=== PATIENT | male | born 1960 | race Caucasian/White ===

== ENCOUNTER 2020-03-20 08:18 | Inpatient (IN) | payer BC ==
--- NOTE | 2020-03-20 09:00 | EDM.PDOC ---
ED HPI GENERAL MEDICAL PROBLEM - General Chief Complaint: Genitourinary Problem Stated Complaint: SWOLLEN TESTICALS Time Seen by Provider: 03/20/20 08:49 Source of Information: Reports: Patient, RN, RN Notes Reviewed History Limitations: Reports: No Limitations - History of Present Illness INITIAL COMMENTS - FREE TEXT/NARRATIVE: Patient presents to the ED via personal vehicle with a complaint of swelling to his testicles. Upon intake of his vital signs, it was noted his oxygen saturations were 78%; he improved to 99% with 10L via mask. He states he has felt and increasing shortness of breath over the past few days. He denies headache, sore throat, cough, chest pain, palpitations, dysuria, or hematuria. He does attest to progressive swelling to his bilateral lower extremities that began this past spring. He states he is not currently taking any medications for hypertension or heart failure and does not follow with a provider for these problems. He states he smokes about one and one half packs of cigarettes per day. He attest to occasional alcohol use, stating he drinks about 3-4 times per year. He denies recreational drug use. ED ROS GENERAL - Review of Systems Review Of Systems: Comprehensive ROS is negative, except as noted in HPI. ED EXAM, GENERAL - Physical Exam Exam: See Below Exam Limited By: No Limitations General Appearance: Alert, WD/WN, Moderate Distress Eye Exam: Bilateral Eye: EOMI, Normal Inspection, PERRL Throat/Mouth: Normal Inspection, Normal Voice, No Airway Compromise Neck: Normal Inspection, Supple, Non-Tender, Full Range of Motion Respiratory/Chest: Respiratory Distress, Rales, Wheezing (Expiratory to bilateral upper lobes), Accessory Muscle Use Cardiovascular: Normal Peripheral Pulses, No Murmur, Tachycardia Peripheral Pulses: 2+: Radial (L), Radial (R) GI/Abdominal: Distended, Abnormal Bowel Sounds (Hypoactive), Hernia (Hx of umbilical hernia repair) (Male) Exam: Rash (Yeast to bilateral groin folds), Scrotal Swelling (+4 scrotal swelling) Rectal (Males) Exam: Deferred Back Exam: Normal Inspection, Full Range of Motion. No: CVA Tenderness (L), CVA Tenderness (R) Extremities: Pedal Edema (+4 pitting to bilateral lowers; Taut shiny skin), Redness (To bilateral lower extremities) Neurological: Alert, Oriented, CN II-XII Intact, Normal Cognition, No Motor/Sensory Deficits Skin Exam: Dry, Intact, Erythema (To bilateral lower extremities and lower abdomen). No: Ecchymosis, Mottled, Pallor #1 Interpretation EKG Date: 03/20/20 Time: 08:58 Rhythm: Other (Sinus Tach) Rate (Beats/Min): 104 [place]: Normal P-Wave: Present QRS: Normal ST-T: Normal QT: Normal Comparison: NA - No Prior EKG EKG Interpretation Comments: Sinus Tach; T wave inversion I, III, aVL, and V1 Course - Vital Signs Last Recorded V/S: Last Vital Signs Temp 99.9 F 03/20/20 08:23 Pulse 99 03/20/20 09:20 Resp 24 H 03/20/20 08:23 BP 144/100 H 03/20/20 08:23 Pulse Ox 72 L 03/20/20 08:23 - Orders/Labs/Meds Orders: Active Orders 24 hr Category Date Time Status Admission Diagnosis [ADT] Stat ADT 03/20/20 11:10 Ordered Admission Status [Patient Status] [ADT] Routine ADT 03/20/20 11:10 Ordered Cardiac Monitoring [RC] . DIRECTED Care 03/20/20 11:10 Ordered EKG Documentation Completion [RC] STAT Care 03/20/20 08:42 Active RT Aerosol Therapy [RC] ASDIRECTED Care 03/20/20 09:11 Active Labs: Laboratory Tests 03/20/20 03/20/20 03/20/20 Range/Units 08:47 08:47 08:47 WBC 7.9 (5.0-10.0) 10^3/uL RBC 5.64 (4.6-6.2) 10^6/uL Hgb 18.9 H (14.0-18.0) g/dL Hct 55.9 H (40.0-54.0) % MCV 99.1 (80-100) fL MCH 33.5 (27.0-34.0) pg MCHC 33.8 (33.0-35.0) g/dL Plt Count 179 (150-450) 10^3/uL Neut % (Auto) 79.1 H (42.2-75.2) % Lymph % (Auto) 7.1 L (20.5-50.1) % [place] % (Auto) 13.4 H (2-8) % Eos % (Auto) 0.1 L (1.0-3.0) % Baso % (Auto) 0.3 (0.0-1.0) % PT (9.0-12.0) SEC INR (0.9-1.2) APTT (22.0-34.0) SEC Sodium 138 (136-145) mmol/L Potassium 5.1 (3.5-5.1) mmol/L Chloride 99 (98-107) mmol/L Carbon Dioxide 36 H (21-32) mmol/L Anion Gap 8.1 (7-13) mEq/L BUN 21 H (7-18) mg/dL Creatinine 1.17 (0.70-1.30) mg/dL Est Cr Clr Drug Dosing 80.01 mL/min Estimated GFR (MDRD) > 60 BUN/Creatinine Ratio 17.9 (No establ ref range) Glucose 158 H (74-99) mg/dL Lactic Acid 1.6 (0.4-2.0) mmol/L Calcium 8.9 (8.5-10.1) mg/dL Phosphorus 4.8 H (2.6-4.7) mg/dL Magnesium 2.1 (1.8-2.4) mg/dL Total Bilirubin 1.4 H (0.2-1.0) mg/dL AST 23 (15-37) U/L ALT 29 (16-63) U/L Alkaline Phosphatase 90 (46-116) U/L Troponin I 0.019 (0.000-0.056) ng/mL C-Reactive Protein 0.2 (0.0-0.9) mg/dL B-Natriuretic Peptide 310 H (0-100) pg/ml Total Protein 5.8 L (6.4-8.2) g/dL Albumin 3.2 L (3.4-5.0) g/dL Globulin 2.6 Albumin/Globulin Ratio 1.23 Urine Color (YELLOW) Urine Appearance (CLEAR) Urine pH (5.0-9.0) Ur Specific [place] (1.005-1.030) Urine Protein (NEGATIVE) Urine Glucose (UA) (NEGATIVE) Urine Ketones (NEGATIVE) Urine Occult Blood (NEGATIVE) Urine Nitrite (NEGATIVE) Urine Bilirubin (NEGATIVE) Urine Urobilinogen (0.2-1.0) mg/dL Ur Leukocyte Esterase (NEGATIVE) Urine RBC /HPF Urine WBC (0-5/HPF) /HPF Ur Epithelial Cells (NOT SEEN) /HPF Urine Bacteria (0-FEW/HPF) /HPF Ethyl Alcohol (0) mg/dL 03/20/20 03/20/20 03/20/20 Range/Units 08:47 08:47 10:08 WBC (5.0-10.0) 10^3/uL RBC (4.6-6.2) 10^6/uL Hgb (14.0-18.0) g/dL Hct (40.0-54.0) % MCV (80-100) fL MCH (27.0-34.0) pg MCHC (33.0-35.0) g/dL Plt Count (150-450) 10^3/uL Neut % (Auto) (42.2-75.2) % Lymph % (Auto) (20.5-50.1) % [place] % (Auto) (2-8) % Eos % (Auto) (1.0-3.0) % Baso % (Auto) (0.0-1.0) % PT 15.0 H (9.0-12.0) SEC INR 1.6 H (0.9-1.2) APTT 25.5 (22.0-34.0) SEC Sodium (136-145) mmol/L Potassium (3.5-5.1) mmol/L Chloride (98-107) mmol/L Carbon Dioxide (21-32) mmol/L Anion Gap (7-13) mEq/L BUN (7-18) mg/dL Creatinine (0.70-1.30) mg/dL Est Cr Clr Drug Dosing mL/min Estimated GFR (MDRD) BUN/Creatinine Ratio (No establ ref range) Glucose (74-99) mg/dL Lactic Acid (0.4-2.0) mmol/L Calcium (8.5-10.1) mg/dL Phosphorus (2.6-4.7) mg/dL Magnesium (1.8-2.4) mg/dL Total Bilirubin (0.2-1.0) mg/dL AST (15-37) U/L ALT (16-63) U/L Alkaline Phosphatase (46-116) U/L Troponin I (0.000-0.056) ng/mL C-Reactive Protein (0.0-0.9) mg/dL B-Natriuretic Peptide (0-100) pg/ml Total Protein (6.4-8.2) g/dL Albumin (3.4-5.0) g/dL Globulin Albumin/Globulin Ratio Urine Color Dark yellow (YELLOW) Urine Appearance Slightly cloudy (CLEAR) Urine pH 6.0 (5.0-9.0) Ur Specific [place] 1.025 (1.005-1.030) Urine Protein 30 H (NEGATIVE) Urine Glucose (UA) Negative (NEGATIVE) Urine Ketones Negative (NEGATIVE) Urine Occult Blood Moderate H (NEGATIVE) Urine Nitrite Negative (NEGATIVE) Urine Bilirubin Negative (NEGATIVE) Urine Urobilinogen 1.0 (0.2-1.0) mg/dL Ur Leukocyte Esterase Negative (NEGATIVE) Urine RBC 40-50 H /HPF Urine WBC Not seen (0-5/HPF) /HPF Ur Epithelial Cells Rare (NOT SEEN) /HPF Urine Bacteria Not seen (0-FEW/HPF) /HPF Ethyl Alcohol < 3 (0) mg/dL Meds: Medications Discontinued Medications Generic Name Dose Route Start Last Admin Trade Name Freq PRN Reason Stop Dose Admin Albuterol/Ipratropium 3 ml 03/20/20 09:10 03/20/20 09:19 Duoneb 3.0-0.5 Mg/3 Ml NEB 03/20/20 09:11 3 ml ONETIME ONE Administration Furosemide 80 mg 03/20/20 09:30 03/20/20 09:48 Lasix IVPUSH 03/20/20 09:31 80 mg NOW ONE Administration - Radiology Interpretation Free Text/Narrative:: [facility] [place] [facility] Final Radiology Report Call: [phone] assistance Online chat: [email or web address] Name: LOC SHI Age: 60Years M Date: 03/20/2020 SSN: -- : [id number] Study: CR CHEST 2V Requesting Physician: Christel Barlow Images: 2 Addl Studies: Provided Clinical History: Shortness of breath; Wheezes Contrast: Contrast Medium: Contrast Amount: Contrast Method: CONFIDENTIALITY STATEMENT This report is intended only for use by the referring physician, and only in accordance with law. If you received this in error, call [phone]. Page 1 of 1 PROCEDURE INFORMATION: Exam: XR Chest, 2 Views Exam date and time: 03/20/2020 9:39 AM Age: 60 years old Clinical indication: Shortness of breath and wheezing; Additional info: Shortness of breath; Wheezes TECHNIQUE: Imaging protocol: XR of the chest Views: 2 views. COMPARISON: No relevant prior studies available. FINDINGS: Lungs: There is increase in AP diameter and flattening of the hemidiaphragms. There is no lobar consolidation. Transverse densities peripheral left mid chest may represent subsegmental atelectasis. Pleural space: Unremarkable. No pleural effusion. No pneumothorax. Heart/Mediastinum: There is moderate cardiomegaly. There is prominence of the vascular pedicle. Bones/joints: Unremarkable. IMPRESSION: 1. No acute infiltrates. Minimal left subsegmental atelectasis. 2. Moderate cardiomegaly. 3. COPD. Thank you for allowing us to participate in the care of your patient. Dictated and Authenticated by: Maddie Suazo MD 03/20/2020 10:03 AM Central Time ([place] & [place]) - Re-Assessments/Exams Free Text/Narrative Re-Assessment/Exam: 03/20/20 11:14 Discussed patient case with Dr. Schultz, including possibility for undiagnosed CHF and COPD. Patient to be admitted to this facility under the care of Dr. Schultz. Departure - Departure Time of Disposition: 11:15 Disposition: Admitted As Inpatient 68 Condition: Good Clinical Impression: COPD (chronic obstructive pulmonary disease) Qualifiers: COPD type: unspecified COPD Qualified Code(s): J44.9 - Chronic obstructive pulmonary disease, unspecified CHF (congestive heart failure) Qualifiers: Heart failure type: unspecified Heart failure chronicity: acute Qualified Cod e(s): I50.9 - Heart failure, unspecified - Discharge Information Forms: ED Department Discharge Sepsis Event Note (ED) - Evaluation Sepsis Screening Result: No Definite Risk - Focused Exam Vital Signs: Vital Signs Temp Pulse Resp BP Pulse Ox 03/20/20 09:20 99 03/20/20 08:23 99.9 F 110 H 24 H 144/100 H 72 L - My Orders Last 24 Hours: My Active Orders 03/20/20 08:42 EKG Documentation Completion [RC] STAT 03/20/20 09:11 RT Aerosol Therapy [RC] ASDIRECTED 03/20/20 11:10 Admission Diagnosis [ADT] Stat Admission Status [Patient Status] [ADT] Routine Cardiac Monitoring [RC] . DIRECTED - Assessment/Plan Last 24 Hours: My Active Orders 03/20/20 08:42 EKG Documentation Completion [RC] STAT 03/20/20 09:11 RT Aerosol Therapy [RC] ASDIRECTED 03/20/20 11:10 Admission Diagnosis [ADT] Stat Admission Status [Patient Status] [ADT] Routine Cardiac Monitoring [RC] . DIRECTED
[2020-03-20] MEDS ORDERED: Albuterol/Ipratropium 3.0-0.5 MG/3 ML Neb Soln NEB ONE (09:10)
[2020-03-20 09:17] LABS: PTT,PARTIAL THROMBOPLSTIN TIME 25.5 SEC (22.0-34.0)
[2020-03-20 09:21] LABS: ANION GAP 8.1 mEq/L (7-13); CHLORIDE,CL 99 mmol/L (98-107); SODIUM,NA 138 mmol/L (136-145)
[2020-03-20] MEDS ORDERED: Furosemide 40 MG/4 ML VIAL IVPUSH ONE (09:30)
--- NOTE | 2020-03-20 10:03 | CR ---
PROCEDURE INFORMATION: Exam: XR Chest, 2 Views Exam date and time: 03/20/2020 9:39 AM Age: 60 years old Clinical indication: Shortness of breath and wheezing; Additional info: Shortness of breath; Wheezes TECHNIQUE: Imaging protocol: XR of the chest Views: 2 views. COMPARISON: No relevant prior studies available. FINDINGS: Lungs: There is increase in AP diameter and flattening of the hemidiaphragms. There is no lobar consolidation. Transverse densities peripheral left mid chest may represent subsegmental atelectasis. Pleural space: Unremarkable. No pleural effusion. No pneumothorax. Heart/Mediastinum: There is moderate cardiomegaly. There is prominence of the vascular pedicle. Bones/joints: Unremarkable. IMPRESSION: 1. No acute infiltrates. Minimal left subsegmental atelectasis. 2. Moderate cardiomegaly. 3. COPD.
[2020-03-20] MEDS ORDERED: Ondansetron 4 MG Tab.DIS PO PRN (12:56)
[2020-03-20] MEDS ORDERED: Acetaminophen 325 MG Tab PO PRN (12:56)
[2020-03-20] MEDS ORDERED: Docusate Sodium 100 MG Cap PO PRN (12:56)
[2020-03-20] MEDS ORDERED: Temazepam 15 MG Cap PO PRN (12:56)
[2020-03-20] MEDS ORDERED: Sodium Chloride 0.9% 10 ML Syringe FLUSH PRN (12:56)
[2020-03-20] MEDS ORDERED: Heparin Sodium 5,000 Units/ML Vial SUBCUT SCH (14:00)
--- NOTE | 2020-03-20 15:09 | PCM.HP ---
H&P History of Present Illness - General Date of Service: 03/20/20 Admit Problem/Dx: Admission Diagnosis/Problem Admission Diagnosis/Problem Congestive heart failure Source of Information: Patient, Provider - History of Present Illness Initial Comments - Free Text/Narative: 60-year-old gentleman who does not receive regular medical care. He says he gained about 75 pounds in the past year. Significant amount of this was in the past month. He has been getting increasingly short of breath associated with leg swelling, swelling of the scrotum in the past few weeks. Came to the emergency room He was noted to have 72% on room air oxygen saturation He is taking no medications. No known drug allergy Smoking about 1.5 pack. 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 - Related Data Allergies/Adverse Reactions: Allergies Allergy/AdvReac Type Severity Reaction Status Date / Time No Known Allergies Allergy Verified 03/20/20 13:03 Home Medications: Home Meds . [No Known Home Meds] 03/20/20 [History] Past Medical History - Past Health History Medical/Surgical History: Denies Medical/Surgical History HEENT History: Reports: None Cardiovascular History: Reports: None Other Cardiovascular History: denies checking bp or seeing a doctor Respiratory History: Reports: None Gastrointestinal History: Reports: None Genitourinary History: Reports: None Musculoskeletal History: Reports: None Neurological History: Reports: None Psychiatric History: Reports: None Endocrine/Metabolic History: Reports: None Hematologic History: Reports: None Immunologic History: Reports: None Oncologic (Cancer) History: Reports: None Dermatologic History: Reports: None - Infectious Disease History Infectious Disease History: Reports: None - Past Surgical History Head Surgeries/Procedures: Reports: None Social & Family History - Family History Family Medical History: No Pertinent Family History - Tobacco Use Tobacco Use Status *Q: Current Every Day Tobacco User Years of Tobacco use: 20 Packs/Tins Daily: 2 - Caffeine Use Caffeine Use: Reports: None - Recreational Drug Use Recreational Drug Use: No H&P Review of Systems - Review of Systems: Review Of Systems: See Below General: Denies: Fever, Chills, Malaise Pulmonary: Reports: Shortness of Breath, Wheezing. Denies: Pleuritic Chest Pain Cardiovascular: Reports: Edema. Denies: Chest Pain Gastrointestinal: Denies: Abdominal Pain Genitourinary: Denies: Dysuria Neurological: Denies: Confusion Exam - Exam Exam: See Below - Vital Signs Vital Signs: Last Vital Signs Temp 98.5 F 03/20/20 13:06 Pulse 101 H 03/20/20 13:06 Resp 22 H 03/20/20 13:06 BP 139/98 H 03/20/20 13:06 Pulse Ox 93 L 03/20/20 13:06 Weight: 367 lb 6.4 oz - Exam Quality Assessment: Supplemental Oxygen General: Alert, Oriented Neck: Supple Lungs: Normal Respiratory Effort, Wheezing Cardiovascular: Regular Rate, Regular Rhythm GI/Abdominal Exam: Normal Bowel Sounds, Soft, Non-Tender Extremities: Pedal Edema (2-3+ bilateral lower extremity edema extending to the scrotum and abdominal wall) Neuro Extensive - Mental Status: Alert, Oriented x3 Psychiatric: Alert, Normal Affect, Normal Mood - Patient Data Lab Results Last 24 hrs: Laboratory Results - last 24 hr 03/20/20 03/20/20 03/20/20 Range/Units 08:47 08:47 08:47 WBC 7.9 (5.0-10.0) 10^3/uL RBC 5.64 (4.6-6.2) 10^6/uL Hgb 18.9 H (14.0-18.0) g/dL Hct 55.9 H (40.0-54.0) % MCV 99.1 (80-100) fL MCH 33.5 (27.0-34.0) pg MCHC 33.8 (33.0-35.0) g/dL Plt Count 179 (150-450) 10^3/uL Neut % (Auto) 79.1 H (42.2-75.2) % Lymph % (Auto) 7.1 L (20.5-50.1) % [place] % (Auto) 13.4 H (2-8) % Eos % (Auto) 0.1 L (1.0-3.0) % Baso % (Auto) 0.3 (0.0-1.0) % PT (9.0-12.0) SEC INR (0.9-1.2) APTT (22.0-34.0) SEC Sodium 138 (136-145) mmol/L Potassium 5.1 (3.5-5.1) mmol/L Chloride 99 (98-107) mmol/L Carbon Dioxide 36 H (21-32) mmol/L Anion Gap 8.1 (7-13) mEq/L BUN 21 H (7-18) mg/dL Creatinine 1.17 (0.70-1.30) mg/dL Est Cr Clr Drug Dosing 80.01 mL/min Estimated GFR (MDRD) > 60 BUN/Creatinine Ratio 17.9 (No establ ref range) Glucose 158 H (74-99) mg/dL Lactic Acid 1.6 (0.4-2.0) mmol/L Calcium 8.9 (8.5-10.1) mg/dL Phosphorus 4.8 H (2.6-4.7) mg/dL Magnesium 2.1 (1.8-2.4) mg/dL Total Bilirubin 1.4 H (0.2-1.0) mg/dL AST 23 (15-37) U/L ALT 29 (16-63) U/L Alkaline Phosphatase 90 (46-116) U/L Troponin I 0.019 (0.000-0.056) ng/mL C-Reactive Protein 0.2 (0.0-0.9) mg/dL B-Natriuretic Peptide 310 H (0-100) pg/ml Total Protein 5.8 L (6.4-8.2) g/dL Albumin 3.2 L (3.4-5.0) g/dL Globulin 2.6 Albumin/Globulin Ratio 1.23 Urine Color (YELLOW) Urine Appearance (CLEAR) Urine pH (5.0-9.0) Ur Specific [place] (1.005-1.030) Urine Protein (NEGATIVE) Urine Glucose (UA) (NEGATIVE) Urine Ketones (NEGATIVE) Urine Occult Blood (NEGATIVE) Urine Nitrite (NEGATIVE) Urine Bilirubin (NEGATIVE) Urine Urobilinogen (0.2-1.0) mg/dL Ur Leukocyte Esterase (NEGATIVE) Urine RBC /HPF Urine WBC (0-5/HPF) /HPF Ur Epithelial Cells (NOT SEEN) /HPF Urine Bacteria (0-FEW/HPF) /HPF Ethyl Alcohol (0) mg/dL SARS CoV-2 RNA Rapid YOLIS (NEGATIVE) 03/20/20 03/20/20 03/20/20 Range/Units 08:47 08:47 10:08 WBC (5.0-10.0) 10^3/uL RBC (4.6-6.2) 10^6/uL Hgb (14.0-18.0) g/dL Hct (40.0-54.0) % MCV (80-100) fL MCH (27.0-34.0) pg MCHC (33.0-35.0) g/dL Plt Count (150-450) 10^3/uL Neut % (Auto) (42.2-75.2) % Lymph % (Auto) (20.5-50.1) % [place] % (Auto) (2-8) % Eos % (Auto) (1.0-3.0) % Baso % (Auto) (0.0-1.0) % PT 15.0 H (9.0-12.0) SEC INR 1.6 H (0.9-1.2) APTT 25.5 (22.0-34.0) SEC Sodium (136-145) mmol/L Potassium (3.5-5.1) mmol/L Chloride (98-107) mmol/L Carbon Dioxide (21-32) mmol/L Anion Gap (7-13) mEq/L BUN (7-18) mg/dL Creatinine (0.70-1.30) mg/dL Est Cr Clr Drug Dosing mL/min Estimated GFR (MDRD) BUN/Creatinine Ratio (No establ ref range) Glucose (74-99) mg/dL Lactic Acid (0.4-2.0) mmol/L Calcium (8.5-10.1) mg/dL Phosphorus (2.6-4.7) mg/dL Magnesium (1.8-2.4) mg/dL Total Bilirubin (0.2-1.0) mg/dL AST (15-37) U/L ALT (16-63) U/L Alkaline Phosphatase (46-116) U/L Troponin I (0.000-0.056) ng/mL C-Reactive Protein (0.0-0.9) mg/dL B-Natriuretic Peptide (0-100) pg/ml Total Protein (6.4-8.2) g/dL Albumin (3.4-5.0) g/dL Globulin Albumin/Globulin Ratio Urine Color Dark yellow (YELLOW) Urine Appearance Slightly cloudy (CLEAR) Urine pH 6.0 (5.0-9.0) Ur Specific [place] 1.025 (1.005-1.030) Urine Protein 30 H (NEGATIVE) Urine Glucose (UA) Negative (NEGATIVE) Urine Ketones Negative (NEGATIVE) Urine Occult Blood Moderate H (NEGATIVE) Urine Nitrite Negative (NEGATIVE) Urine Bilirubin Negative (NEGATIVE) Urine Urobilinogen 1.0 (0.2-1.0) mg/dL Ur Leukocyte Esterase Negative (NEGATIVE) Urine RBC 40-50 H /HPF Urine WBC Not seen (0-5/HPF) /HPF Ur Epithelial Cells Rare (NOT SEEN) /HPF Urine Bacteria Not seen (0-FEW/HPF) /HPF Ethyl Alcohol < 3 (0) mg/dL SARS CoV-2 RNA Rapid YOLIS (NEGATIVE) 03/20/20 Range/Units 12:22 WBC (5.0-10.0) 10^3/uL RBC (4.6-6.2) 10^6/uL Hgb (14.0-18.0) g/dL Hct (40.0-54.0) % MCV (80-100) fL MCH (27.0-34.0) pg MCHC (33.0-35.0) g/dL Plt Count (150-450) 10^3/uL Neut % (Auto) (42.2-75.2) % Lymph % (Auto) (20.5-50.1) % [place] % (Auto) (2-8) % Eos % (Auto) (1.0-3.0) % Baso % (Auto) (0.0-1.0) % PT (9.0-12.0) SEC INR (0.9-1.2) APTT (22.0-34.0) SEC Sodium (136-145) mmol/L Potassium (3.5-5.1) mmol/L Chloride (98-107) mmol/L Carbon Dioxide (21-32) mmol/L Anion Gap (7-13) mEq/L BUN (7-18) mg/dL Creatinine (0.70-1.30) mg/dL Est Cr Clr Drug Dosing mL/min Estimated GFR (MDRD) BUN/Creatinine Ratio (No establ ref range) Glucose (74-99) mg/dL Lactic Acid (0.4-2.0) mmol/L Calcium (8.5-10.1) mg/dL Phosphorus (2.6-4.7) mg/dL Magnesium (1.8-2.4) mg/dL Total Bilirubin (0.2-1.0) mg/dL AST (15-37) U/L ALT (16-63) U/L Alkaline Phosphatase (46-116) U/L Troponin I (0.000-0.056) ng/mL C-Reactive Protein (0.0-0.9) mg/dL B-Natriuretic Peptide (0-100) pg/ml Total Protein (6.4-8.2) g/dL Albumin (3.4-5.0) g/dL Globulin Albumin/Globulin Ratio Urine Color (YELLOW) Urine Appearance (CLEAR) Urine pH (5.0-9.0) Ur Specific [place] (1.005-1.030) Urine Protein (NEGATIVE) Urine Glucose (UA) (NEGATIVE) Urine Ketones (NEGATIVE) Urine Occult Blood (NEGATIVE) Urine Nitrite (NEGATIVE) Urine Bilirubin (NEGATIVE) Urine Urobilinogen (0.2-1.0) mg/dL Ur Leukocyte Esterase (NEGATIVE) Urine RBC /HPF Urine WBC (0-5/HPF) /HPF Ur Epithelial Cells (NOT SEEN) /HPF Urine Bacteria (0-FEW/HPF) /HPF Ethyl Alcohol (0) mg/dL SARS CoV-2 RNA Rapid YOLIS Negative (NEGATIVE) Result Diagrams: 03/20/20 08:47 03/20/20 08:47 - Problem List (1) Acute exacerbation of chronic obstructive pulmonary disease SNOMED Code(s): 330578782 ICD Code: J44.1 - CHRONIC OBSTRUCTIVE PULMONARY DISEASE W (ACUTE) EXACERBATION Status: Acute Current Visit: Yes (2) CHF (congestive heart failure) SNOMED Code(s): 37086801 ICD Code: I50.9 - HEART FAILURE, UNSPECIFIED Status: Acute Current Visit: No Qualifiers: Heart failure type: unspecified Heart failure chronicity: acute Qualified Code(s): I50.9 - Heart failure, unspecified (3) COPD (chronic obstructive pulmonary disease) SNOMED Code(s): 66918212 ICD Code: J44.9 - CHRONIC OBSTRUCTIVE PULMONARY DISEASE, UNSPECIFIED Status: Acute Current Visit: No Qualifiers: COPD type: unspecified COPD Qualified Code(s): J44.9 - Chronic obstructive pulmonary disease, unspecified (4) Hyperglycemia SNOMED Code(s): 06572247 ICD Code: R73.9 - HYPERGLYCEMIA, UNSPECIFIED Status: Acute Current Visit: Yes Problem List Initiated/Reviewed/Updated: Yes Orders Last 24hrs: Active Orders 24 hr Category Date Time Status Admission Diagnosis [ADT] Stat ADT 03/20/20 11:10 Ordered Admission Status [Patient Status] [ADT] Routine ADT 03/20/20 11:10 Active Antiembolic Devices [RC] Care 03/20/20 12:58 Active Cardiac Monitoring [RC] Care 03/20/20 11:10 Active Oxygen Therapy [RC] PRN Care 03/20/20 12:56 Active Peripheral IV Care [RC] Care 03/20/20 12:58 Active RT Aerosol Therapy [RC] ASDIRECTED Care 03/20/20 09:11 Active Up With Assistance [RC] ASDIRECTED Care 03/20/20 12:56 Active VTE/DVT Education [RC] PER UNIT ROUTINE Care 03/20/20 12:56 Active Vital Signs [RC] Q4H Care 03/20/20 12:56 Active Regular Diet [DIET] Diet 03/20/20 Dinner Active BASIC METABOLIC PANEL,BMP [CHEM] AM Lab 03/21/20 05:11 Ordered CBC W/O DIFF,HEMOGRAM [HEME] AM Lab 03/21/20 05:11 Ordered MAGNESIUM [CHEM] AM Lab 03/21/20 05:11 Ordered PHOSPHORUS [CHEM] AM Lab 03/21/20 05:11 Ordered Acetaminophen [TylenoL] Med 03/20/20 12:56 Active 650 mg PO Q4H PRN Docusate Sodium [Colace] Med 03/20/20 12:56 Active 100 mg PO BID PRN Heparin Sodium Med 03/20/20 14:00 Active 5,000 units SUBCUT Q8HR Ondansetron [Zofran ODT] Med 03/20/20 12:56 Active 4 mg PO Q6H PRN Sodium Chloride 0.9% [Saline Flush] Med 03/20/20 12:56 Active 10 ml FLUSH ASDIRECTED PRN Temazepam [Restoril] Med 03/20/20 12:56 Active 15 mg PO BEDTIME PRN Antiembolic Hose [OM.PC] Per Unit Routine Oth 03/20/20 12:57 Ordered Peripheral IV Insertion Adult [OM.PC] Routine Oth 03/20/20 12:56 Ordered Saline Lock Insert [OM.PC] Routine Oth 03/20/20 12:56 Ordered Resuscitation Status Routine Resus Stat 03/20/20 12:56 Ordered Medication Orders Acetaminophen (Tylenol) 650 mg PO Q4H PRN PRN Reason: Pain (Mild 1-3)/fever Docusate Sodium (Colace) 100 mg PO BID PRN PRN Reason: Constipation Heparin Sodium (Porcine) (Heparin Sodium) 5,000 units SUBCUT Q8HR YASIR Ondansetron HCl (Zofran Odt) 4 mg PO Q6H PRN PRN Reason: nausea, able to take PO Sodium Chloride (Saline Flush) 10 ml FLUSH ASDIRECTED PRN PRN Reason: Keep Vein Open Temazepam (Restoril) 15 mg PO BEDTIME PRN PRN Reason: Sleep Assessment/Plan Comment:: 60-year-old gentleman who does not receive regular medical care. He says he gained about 75 pounds in the past year. Significant amount of this was in the past month. He has been getting increasingly short of breath associated with leg swelling, swelling of the scrotum in the past few weeks. Came to the emergency room He was noted to have 72% on room air oxygen saturation He is taking no medications. No known drug allergy Smoking about 1.5 pack. 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 No recent fever, chills, cough. No abdominal pain, diarrhea. Has shortness of breath above but no associated chest pain. He is minimally active. Shortness of breath is worse with activity. Fluid overload Likely secondary to acute congestive heart failure with right heart failure We will obtain echocardiogram to further characterize Start treating with diuretics Potassium supplement Electrolytes and replace them as needed Follow renal function Acute COPD exacerbation The patient presented with hypoxemia and wheezing This might relate to a previously undiagnosed COPD with a history of smoking Will treat the patient with PulJose kennedy scheduled and as needed Discussed smoking cessation The patient likely has obstructive sleep apnea Will need outpatient follow-up Acute hypoxemic respiratory failure Supplement oxygen as needed Elevated blood sugar Has no chronic diagnosis of diabetes Well follow blood sugars Supplemental insulin and hypoglycemia treatment as needed Hypertension noted on admission Will follow with diuretics DVT prophylaxis with subcutaneous heparin
[2020-03-20] MEDS ORDERED: Albuterol/Ipratropium 3.0-0.5 MG/3 ML Neb Soln NEB PRN (15:10)
[2020-03-20] MEDS ORDERED: Glucagon,Human Recombinant 1 MG Vial IM PRN (15:13)
[2020-03-20] MEDS ORDERED: 50% Dextrose in Water 50 ML Syringe IV PRN (15:13)
[2020-03-20] MEDS ORDERED: Insulin Lispro 100 Units/ML 3 ML Vial SUBCUT SCH (17:00)
[2020-03-20] MEDS ORDERED: Albuterol/Ipratropium 3.0-0.5 MG/3 ML Neb Soln NEB SCH (18:00)
[2020-03-20] MEDS ORDERED: Budesonide 0.5 MG/2 ML Neb Susp NEB SCH (18:00)
[2020-03-20] MEDS ORDERED: methylPREDNISolone Sodium Succinate 40 MG/1 ML SDV IVPUSH ONE (18:37)
[2020-03-20 18:59] LABS: BASE EXCESS ARTERIAL 4 mmol/L ({null, (-2)-(+3)}); BICARBONATE,ARTERIAL 40.8 mmol/L (22-26); O2 DELIVERY DEVICE NASAL CANNULA; O2 SATURATION ARTERIAL 95 % (95-100); PO2 ARTERIAL 100 mmHg (70-100)
[2020-03-20 19:02] LABS: ALLEN TEST PERFORMED; PCO2 ARTERIAL 125 mmHg (35-45)
[2020-03-20] MEDS ORDERED: Potassium Chloride 10 MEQ Tab.ER PO SCH (21:00)
[2020-03-20] MEDS ORDERED: Furosemide 20 MG/2 ML VIAL IVPUSH SCH (21:00)
[2020-03-20 21:17] LABS: BASE EXCESS ARTERIAL 3 mmol/L ({null, (-2)-(+3)}); BICARBONATE,ARTERIAL 40.8 mmol/L (22-26); O2 DELIVERY DEVICE BIPAP; O2 SATURATION ARTERIAL 96 % (95-100); PO2 ARTERIAL 101 mmHg (70-100)
[2020-03-20 21:18] LABS: ALLEN TEST PERFORMED; PCO2 ARTERIAL 128 mmHg (35-45)
--- NOTE | 2020-03-20 21:55 | PCM.DCSUM1 ---
Discharge Summary - Hospital Course Free Text/Narrative:: 60-year-old gentleman who does not receive regular medical care. He says he gained about 75 pounds in the past year. Significant amount of this was in the past month. He has been getting increasingly short of breath associated with leg swelling, swelling of the scrotum in the past few weeks. Came to the emergency room He was noted to have 72% on room air oxygen saturation He is taking no medications. No known drug allergy Smoking about 1.5 pack. 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 No recent fever, chills, cough. No abdominal pain, diarrhea. Has shortness of breath above but no associated chest pain. He is minimally active. Shortness of breath is worse with activity. patient was admitted and was treated for acute congestive heart failure with right heart failure, acute COPD exacerbation The patient received IV diuretics and had good urine output For acute COPD the patient was treated with the Pulmicort, DuoNeb, IV Solu- Medrol He was noted to have decreased alertness ABG showed significant CO2 retention and respiratory acidosis The patient was started on BiPAP In 2 hours his ABG did not improve Remained lethargic Decision was to intubate the patient Transfer the patient to higher level of care with critical care availability called [facility] in [place], Dr. Coelho from critical care was accepting physician Diagnosis: Stroke: No - Discharge Data Discharge Date: 03/20/20 Discharge Disposition: DC/Tfer to Acute Hospital 02 Condition: Critical - Referral to Home Health Primary Care Physician: PCP Unobtainable - Discharge Diagnosis/Problem(s) (1) Acute exacerbation of chronic obstructive pulmonary disease SNOMED Code(s): 998316207 ICD Code: J44.1 - CHRONIC OBSTRUCTIVE PULMONARY DISEASE W (ACUTE) EXACERBATION Status: Acute Current Visit: Yes (2) CHF (congestive heart failure) SNOMED Code(s): 81119560 ICD Code: I50.9 - HEART FAILURE, UNSPECIFIED Status: Acute Current Visit: No Qualifiers: Heart failure type: unspecified Heart failure chronicity: acute Qualified Code(s): I50.9 - Heart failure, unspecified (3) COPD (chronic obstructive pulmonary disease) SNOMED Code(s): 66502770 ICD Code: J44.9 - CHRONIC OBSTRUCTIVE PULMONARY DISEASE, UNSPECIFIED Status: Acute Current Visit: No Qualifiers: COPD type: unspecified COPD Qualified Code(s): J44.9 - Chronic obstructive pulmonary disease, unspecified (4) Hyperglycemia SNOMED Code(s): 77100196 ICD Code: R73.9 - HYPERGLYCEMIA, UNSPECIFIED Status: Acute Current Visit: Yes (5) Acute hypercapnic respiratory failure SNOMED Code(s): 005831248 ICD Code: J96.02 - ACUTE RESPIRATORY FAILURE WITH HYPERCAPNIA Status: Acute Current Visit: Yes - Discharge Plan Home Medications: Home Meds Albuterol/Ipratropium [DuoNeb 3.0-0.5 MG/3 ML] 3 ml NEB Q4H PRN neb 03/20/20 [Rx] Albuterol/Ipratropium [DuoNeb 3.0-0.5 MG/3 ML] 3 ml NEB TIDRT neb 03/20/20 [Rx] Budesonide [Pulmicort] 0.5 mg NEB BIDRT #0 neb 03/20/20 [Rx] Furosemide [Lasix] 20 mg IVPUSH BID vial 03/20/20 [Rx] Heparin Sodium 5,000 units SUBCUT Q8HR vial 03/20/20 [Rx] Insulin Lispro [HumaLOG] 0 unit SUBCUT QIDACANDBED vial 03/20/20 [Rx] Potassium Chloride [Klor-Con 10] 20 meq PO BEDTIME tab.er 03/20/20 [Rx] methylPREDNISolone Sod Succ [Solu-MEDROL] 40 mg IVPUSH Q8H sdv 03/20/20 [Rx] Oxygen Therapy Mode: Mechanical Ventilation - Discharge Summary/Plan Comment DC Time >30 min.: Yes (d/w dr. Meliton fischer MD) - Patient Data Vitals - Most Recent: Last Vital Signs Temp 97.1 F 03/20/20 17:00 Pulse 97 03/20/20 21:33 Resp 18 03/20/20 17:00 BP 132/90 03/20/20 17:30 Pulse Ox 94 L 03/20/20 21:33 Weight - Most Recent: 367 lb 6.4 oz I&O - Last 24 hours: Intake & Output 03/20/20 03/20/20 03/20/20 06:59 14:59 22:59 Intake Total 200 Output Total 2400 700 Balance -2200 -700 Lab Results - Last 24 hrs: Laboratory Results - last 24 hr 03/20/20 03/20/20 03/20/20 Range/Units 08:47 08:47 08:47 WBC 7.9 (5.0-10.0) 10^3/uL RBC 5.64 (4.6-6.2) 10^6/uL Hgb 18.9 H (14.0-18.0) g/dL Hct 55.9 H (40.0-54.0) % MCV 99.1 (80-100) fL MCH 33.5 (27.0-34.0) pg MCHC 33.8 (33.0-35.0) g/dL Plt Count 179 (150-450) 10^3/uL Neut % (Auto) 79.1 H (42.2-75.2) % Lymph % (Auto) 7.1 L (20.5-50.1) % [place] % (Auto) 13.4 H (2-8) % Eos % (Auto) 0.1 L (1.0-3.0) % Baso % (Auto) 0.3 (0.0-1.0) % PT (9.0-12.0) SEC INR (0.9-1.2) APTT (22.0-34.0) SEC ABG pH (7.35-7.45) ABG pCO2 (35-45) mmHg ABG pO2 (70-100) mmHg ABG HCO3 (22-26) mmol/L ABG O2 Saturation (95-100) % ABG Base Excess ((-2)-(+3)) mmol/L [place] Test O2 Delivery Device Sodium 138 (136-145) mmol/L Potassium 5.1 (3.5-5.1) mmol/L Chloride 99 (98-107) mmol/L Carbon Dioxide 36 H (21-32) mmol/L Anion Gap 8.1 (7-13) mEq/L BUN 21 H (7-18) mg/dL Creatinine 1.17 (0.70-1.30) mg/dL Est Cr Clr Drug Dosing 80.01 mL/min Estimated GFR (MDRD) > 60 BUN/Creatinine Ratio 17.9 (No establ ref range) Glucose 158 H (74-99) mg/dL POC Glucose (70-105) mg/dl Lactic Acid 1.6 (0.4-2.0) mmol/L Calcium 8.9 (8.5-10.1) mg/dL Phosphorus 4.8 H (2.6-4.7) mg/dL Magnesium 2.1 (1.8-2.4) mg/dL Total Bilirubin 1.4 H (0.2-1.0) mg/dL AST 23 (15-37) U/L ALT 29 (16-63) U/L Alkaline Phosphatase 90 (46-116) U/L Troponin I 0.019 (0.000-0.056) ng/mL C-Reactive Protein 0.2 (0.0-0.9) mg/dL B-Natriuretic Peptide 310 H (0-100) pg/ml Total Protein 5.8 L (6.4-8.2) g/dL Albumin 3.2 L (3.4-5.0) g/dL Globulin 2.6 Albumin/Globulin Ratio 1.23 Urine Color (YELLOW) Urine Appearance (CLEAR) Urine pH (5.0-9.0) Ur Specific [place] (1.005-1.030) Urine Protein (NEGATIVE) Urine Glucose (UA) (NEGATIVE) Urine Ketones (NEGATIVE) Urine Occult Blood (NEGATIVE) Urine Nitrite (NEGATIVE) Urine Bilirubin (NEGATIVE) Urine Urobilinogen (0.2-1.0) mg/dL Ur Leukocyte Esterase (NEGATIVE) Urine RBC /HPF Urine WBC (0-5/HPF) /HPF Ur Epithelial Cells (NOT SEEN) /HPF Urine Bacteria (0-FEW/HPF) /HPF Ethyl Alcohol (0) mg/dL SARS CoV-2 RNA Rapid YOLIS (NEGATIVE) 03/20/20 03/20/20 03/20/20 Range/Units 08:47 08:47 10:08 WBC (5.0-10.0) 10^3/uL RBC (4.6-6.2) 10^6/uL Hgb (14.0-18.0) g/dL Hct (40.0-54.0) % MCV (80-100) fL MCH (27.0-34.0) pg MCHC (33.0-35.0) g/dL Plt Count (150-450) 10^3/uL Neut % (Auto) (42.2-75.2) % Lymph % (Auto) (20.5-50.1) % [place] % (Auto) (2-8) % Eos % (Auto) (1.0-3.0) % Baso % (Auto) (0.0-1.0) % PT 15.0 H (9.0-12.0) SEC INR 1.6 H (0.9-1.2) APTT 25.5 (22.0-34.0) SEC ABG pH (7.35-7.45) ABG pCO2 (35-45) mmHg ABG pO2 (70-100) mmHg ABG HCO3 (22-26) mmol/L ABG O2 Saturation (95-100) % ABG Base Excess ((-2)-(+3)) mmol/L [place] Test O2 Delivery Device Sodium (136-145) mmol/L Potassium (3.5-5.1) mmol/L Chloride (98-107) mmol/L Carbon Dioxide (21-32) mmol/L Anion Gap (7-13) mEq/L BUN (7-18) mg/dL Creatinine (0.70-1.30) mg/dL Est Cr Clr Drug Dosing mL/min Estimated GFR (MDRD) BUN/Creatinine Ratio (No establ ref range) Glucose (74-99) mg/dL POC Glucose (70-105) mg/dl Lactic Acid (0.4-2.0) mmol/L Calcium (8.5-10.1) mg/dL Phosphorus (2.6-4.7) mg/dL Magnesium (1.8-2.4) mg/dL Total Bilirubin (0.2-1.0) mg/dL AST (15-37) U/L ALT (16-63) U/L Alkaline Phosphatase (46-116) U/L Troponin I (0.000-0.056) ng/mL C-Reactive Protein (0.0-0.9) mg/dL B-Natriuretic Peptide (0-100) pg/ml Total Protein (6.4-8.2) g/dL Albumin (3.4-5.0) g/dL Globulin Albumin/Globulin Ratio Urine Color Dark yellow (YELLOW) Urine Appearance Slightly cloudy (CLEAR) Urine pH 6.0 (5.0-9.0) Ur Specific [place] 1.025 (1.005-1.030) Urine Protein 30 H (NEGATIVE) Urine Glucose (UA) Negative (NEGATIVE) Urine Ketones Negative (NEGATIVE) Urine Occult Blood Moderate H (NEGATIVE) Urine Nitrite Negative (NEGATIVE) Urine Bilirubin Negative (NEGATIVE) Urine Urobilinogen 1.0 (0.2-1.0) mg/dL Ur Leukocyte Esterase Negative (NEGATIVE) Urine RBC 40-50 H /HPF Urine WBC Not seen (0-5/HPF) /HPF Ur Epithelial Cells Rare (NOT SEEN) /HPF Urine Bacteria Not seen (0-FEW/HPF) /HPF Ethyl Alcohol < 3 (0) mg/dL SARS CoV-2 RNA Rapid YOLIS (NEGATIVE) 03/20/20 03/20/20 03/20/20 Range/Units 12:22 17:02 18:53 WBC (5.0-10.0) 10^3/uL RBC (4.6-6.2) 10^6/uL Hgb (14.0-18.0) g/dL Hct (40.0-54.0) % MCV (80-100) fL MCH (27.0-34.0) pg MCHC (33.0-35.0) g/dL Plt Count (150-450) 10^3/uL Neut % (Auto) (42.2-75.2) % Lymph % (Auto) (20.5-50.1) % [place] % (Auto) (2-8) % Eos % (Auto) (1.0-3.0) % Baso % (Auto) (0.0-1.0) % PT (9.0-12.0) SEC INR (0.9-1.2) APTT (22.0-34.0) SEC ABG pH 7.14 L* (7.35-7.45) ABG pCO2 125 H* (35-45) mmHg ABG pO2 100 (70-100) mmHg ABG HCO3 40.8 H (22-26) mmol/L ABG O2 Saturation 95 (95-100) % ABG Base Excess 4 H ((-2)-(+3)) mmol/L [place] Test Performed O2 Delivery Device Nasal cannula Sodium (136-145) mmol/L Potassium (3.5-5.1) mmol/L Chloride (98-107) mmol/L Carbon Dioxide (21-32) mmol/L Anion Gap (7-13) mEq/L BUN (7-18) mg/dL Creatinine (0.70-1.30) mg/dL Est Cr Clr Drug Dosing mL/min Estimated GFR (MDRD) BUN/Creatinine Ratio (No establ ref range) Glucose (74-99) mg/dL POC Glucose 120 H (70-105) mg/dl Lactic Acid (0.4-2.0) mmol/L Calcium (8.5-10.1) mg/dL Phosphorus (2.6-4.7) mg/dL Magnesium (1.8-2.4) mg/dL Total Bilirubin (0.2-1.0) mg/dL AST (15-37) U/L ALT (16-63) U/L Alkaline Phosphatase (46-116) U/L Troponin I (0.000-0.056) ng/mL C-Reactive Protein (0.0-0.9) mg/dL B-Natriuretic Peptide (0-100) pg/ml Total Protein (6.4-8.2) g/dL Albumin (3.4-5.0) g/dL Globulin Albumin/Globulin Ratio Urine Color (YELLOW) Urine Appearance (CLEAR) Urine pH (5.0-9.0) Ur Specific [place] (1.005-1.030) Urine Protein (NEGATIVE) Urine Glucose (UA) (NEGATIVE) Urine Ketones (NEGATIVE) Urine Occult Blood (NEGATIVE) Urine Nitrite (NEGATIVE) Urine Bilirubin (NEGATIVE) Urine Urobilinogen (0.2-1.0) mg/dL Ur Leukocyte Esterase (NEGATIVE) Urine RBC /HPF Urine WBC (0-5/HPF) /HPF Ur Epithelial Cells (NOT SEEN) /HPF Urine Bacteria (0-FEW/HPF) /HPF Ethyl Alcohol (0) mg/dL SARS CoV-2 RNA Rapid YOLIS Negative (NEGATIVE) 03/20/20 03/20/20 Range/Units 21:01 21:11 WBC (5.0-10.0) 10^3/uL RBC (4.6-6.2) 10^6/uL Hgb (14.0-18.0) g/dL Hct (40.0-54.0) % MCV (80-100) fL MCH (27.0-34.0) pg MCHC (33.0-35.0) g/dL Plt Count (150-450) 10^3/uL Neut % (Auto) (42.2-75.2) % Lymph % (Auto) (20.5-50.1) % [place] % (Auto) (2-8) % Eos % (Auto) (1.0-3.0) % Baso % (Auto) (0.0-1.0) % PT (9.0-12.0) SEC INR (0.9-1.2) APTT (22.0-34.0) SEC ABG pH 7.13 L* (7.35-7.45) ABG pCO2 128 H* (35-45) mmHg ABG pO2 101 H (70-100) mmHg ABG HCO3 40.8 H (22-26) mmol/L ABG O2 Saturation 96 (95-100) % ABG Base Excess 3 ((-2)-(+3)) mmol/L [place] Test Performed O2 Delivery Device Bipap Sodium (136-145) mmol/L Potassium (3.5-5.1) mmol/L Chloride (98-107) mmol/L Carbon Dioxide (21-32) mmol/L Anion Gap (7-13) mEq/L BUN (7-18) mg/dL Creatinine (0.70-1.30) mg/dL Est Cr Clr Drug Dosing mL/min Estimated GFR (MDRD) BUN/Creatinine Ratio (No establ ref range) Glucose (74-99) mg/dL POC Glucose 129 H (70-105) mg/dl Lactic Acid (0.4-2.0) mmol/L Calcium (8.5-10.1) mg/dL Phosphorus (2.6-4.7) mg/dL Magnesium (1.8-2.4) mg/dL Total Bilirubin (0.2-1.0) mg/dL AST (15-37) U/L ALT (16-63) U/L Alkaline Phosphatase (46-116) U/L Troponin I (0.000-0.056) ng/mL C-Reactive Protein (0.0-0.9) mg/dL B-Natriuretic Peptide (0-100) pg/ml Total Protein (6.4-8.2) g/dL Albumin (3.4-5.0) g/dL Globulin Albumin/Globulin Ratio Urine Color (YELLOW) Urine Appearance (CLEAR) Urine pH (5.0-9.0) Ur Specific [place] (1.005-1.030) Urine Protein (NEGATIVE) Urine Glucose (UA) (NEGATIVE) Urine Ketones (NEGATIVE) Urine Occult Blood (NEGATIVE) Urine Nitrite (NEGATIVE) Urine Bilirubin (NEGATIVE) Urine Urobilinogen (0.2-1.0) mg/dL Ur Leukocyte Esterase (NEGATIVE) Urine RBC /HPF Urine WBC (0-5/HPF) /HPF Ur Epithelial Cells (NOT SEEN) /HPF Urine Bacteria (0-FEW/HPF) /HPF Ethyl Alcohol (0) mg/dL SARS CoV-2 RNA Rapid YOLIS (NEGATIVE) Med Orders - Current: Current Medications Acetaminophen (Tylenol) 650 mg PO Q4H PRN PRN Reason: Pain (Mild 1-3)/fever Albuterol/Ipratropium (Duoneb 3.0-0.5 Mg/3 Ml) 3 ml NEB TIDRT [facility] Last Admin: 03/20/20 18:07 Dose: 3 ml Documented by: Albuterol/Ipratropium (Duoneb 3.0-0.5 Mg/3 Ml) 3 ml NEB Q4H PRN PRN Reason: sob Last Admin: 03/20/20 21:33 Dose: 3 ml Documented by: Budesonide (Pulmicort) 0.5 mg NEB BIDRT [facility] Last Admin: 03/20/20 18:06 Dose: 0.5 mg Documented by: Dextrose/Water (Dextrose 50% In Water) 50 ml IV ASDIRECTED PRN PRN Reason: Hypoglycemia Docusate Sodium (Colace) 100 mg PO BID PRN PRN Reason: Constipation Furosemide (Lasix) 20 mg IVPUSH BID [facility] Glucagon (Glucagen) 1 mg IM ASDIRECTED PRN PRN Reason: Hypoglycemia Heparin Sodium (Porcine) (Heparin Sodium) 5,000 units SUBCUT Q8HR [facility] Last Admin: 03/20/20 15:17 Dose: 5,000 units Documented by: Insulin Human Lispro (Humalog) 0 unit SUBCUT QIDACANDBED [facility]; Protocol Last Admin: 03/20/20 17:16 Dose: Not Given Documented by: Methylprednisolone Sodium Succinate (Solu-Medrol) 40 mg IVPUSH Q8H [facility] Ondansetron HCl (Zofran Odt) 4 mg PO Q6H PRN PRN Reason: nausea, able to take PO Potassium Chloride (Klor-Con 10) 20 meq PO BEDTIME YASIR Sodium Chloride (Saline Flush) 10 ml FLUSH ASDIRECTED PRN PRN Reason: Keep Vein Open Temazepam (Restoril) 15 mg PO BEDTIME PRN PRN Reason: Sleep Discontinued Medications Albuterol/Ipratropium (Duoneb 3.0-0.5 Mg/3 Ml) 3 ml NEB ONETIME ONE Stop: 03/20/20 09:11 Last Admin: 03/20/20 09:19 Dose: 3 ml Documented by: Furosemide (Lasix) 80 mg IVPUSH NOW ONE Stop: 03/20/20 09:31 Last Admin: 03/20/20 09:48 Dose: 80 mg Documented by: Methylprednisolone Sodium Succinate (Solu-Medrol) 40 mg IVPUSH ONETIME ONE Stop: 03/20/20 18:38 Last Admin: 03/20/20 18:52 Dose: 40 mg Documented by: - Exam General: Reports: Lethargic, Other (BiPAP mask) Lungs: Reports: Wheezing Cardiovascular: Reports: Regular Rate, Regular Rhythm Extremities: Pedal Edema
--- NOTE | 2020-03-20 22:36 | CR ---
PROCEDURE INFORMATION: Exam: XR Chest, 1 View Exam date and time: 03/20/2020 10:24 PM Age: 60 years old Clinical indication: Device placement; Other: Post intubation; Additional info: Post intibation TECHNIQUE: Imaging protocol: XR of the chest Views: 1 view. COMPARISON: CR Chest 2V 03/20/2020 9:39 AM FINDINGS: Tubes, catheters and devices: There is an endotracheal tube in good position with tip about 4 cm above the rebecca. There is a transesophageal tube which is visualized passing below the left hemidiaphragm. Lungs: There are hazy bibasilar parenchymal opacities. These could be due to a combination of airspace disease and pleural effusions. There is bronchial wall thickening. Pleural space: Pleural effusions are suspected, especially on the right. Heart/Mediastinum: The cardiac silhouette is enlarged. The pulmonary vessels are engorged. Bones/joints: No acute osseous pathology is identified. Other findings: Image quality is reduced due to the patient's large body habitus. IMPRESSION: 1. Allowing for difficulties due to the patient's body habitus, the endotracheal and transesophageal tubes appear to be in good position. 2. There is cardiomegaly with vascular congestion and suspected pleural effusions, especially on the right. Findings are suspicious for CHF/fluid overload.
[2020-03-20] MEDS ORDERED: Succinylcholine 200 MG/10 ML MDV IV ONE (23:14)
[2020-03-20] MEDS ORDERED: Rocuronium 100 MG/10 ML MDV IV ONE (23:14)
[2020-03-20] MEDS ORDERED: fentaNYL 100 MCG/2 ML SDV IV ONE (23:14)
[2020-03-21] MEDS ORDERED: methylPREDNISolone Sodium Succinate 40 MG/1 ML SDV IVPUSH SCH (07:00)
== END 2020-03-20 23:15 | DRG 194 ==
LOC: DL.ED 08:18 → DL.MS 11:10
PROVIDERS: ADMIT Internal Medicine; ATTEND Internal Medicine
DX: I11.0 Hypertensive heart disease with heart failure (principal); J96.02 Acute respiratory failure with hypercapnia; I50.810 Right heart failure, unspecified; J44.1 Chronic obstructive pulmonary disease with (acute) exacerbation; Z20.828 Contact with and (suspected) exposure to other viral communicable diseases; E87.2 Acidosis; R73.9 Hyperglycemia, unspecified; N50.89 Other specified disorders of the male genital organs; F17.210 Nicotine dependence, cigarettes, uncomplicated; G47.33 Obstructive sleep apnea (adult) (pediatric); Z79.4 Long term (current) use of insulin; Z79.899 Other long term (current) drug therapy
CPT/HCPCS: 31500; 36415; 36600; 71045; 71046; 80053; 80307; 81001; 82803; 82962; 83605; 83735; 83880; 84100; 84484; 85025; 85610; 85730; 86140; 93005; 93010; 94640; 94660; 96374; 99236; 99284; 99285-25; J0330; J1644; J1940; J2920; J3010; J7620-GY; U0002

== ENCOUNTER 2023-06-13 11:21 | Emergency (ER) | payer BC ==
[2023-06-13] MEDS: Bupivacaine 0.5% 30 ML SDV INFILT ONE (11:57)
[2023-06-13] MEDS: Lidocaine 1% 30 ML SDV INJECT ONE (11:57)
[2023-06-13] MEDS: Bacitracin Oint 1 GM U/D Packet TOP ONE (11:57)
[2023-06-13] MEDS: Diphtheria,Pertussis(Acell),Tetanus Vaccine 0.5 ML Syringe IM ONE (11:58)
[2023-06-13] MEDS: Take Home: Cephalexin 500 MG Cap, 6 Cap Pack PO ONE (12:08)
== END 2023-06-13 13:38 | disposition home or self-care (01) ==
LOC: DL.ED 11:21
DX: S81.811A Laceration without foreign body, right lower leg, initial encounter (principal); I11.0 Hypertensive heart disease with heart failure; I50.9 Heart failure, unspecified; Z79.84 Long term (current) use of oral hypoglycemic drugs; Z23 Encounter for immunization; Z79.899 Other long term (current) drug therapy; W26.9XXA Contact with unspecified sharp object(s), initial encounter
CPT/HCPCS: 12004; 12035; 90471; 90715; 99282-25; 99284; A9270-GY; J0665; J3490

== ENCOUNTER → 2023-06-27 | Emergency (ER) | payer BC | LOC: DL.ED 09:47 | DX: Z48.02 Encounter for removal of sutures (principal) | CPT/HCPCS: 99281 ==